=== PATIENT | female | born 1960 | race Caucasian/White ===

== ENCOUNTER → 2017-06-24 | Outpatient (CLI) | payer BC | END | disposition home or self-care (01) | LOC: Rad HDHVI 07:57 | PROVIDERS: ATTEND Internal Medicine Cardiovascular Disease | DX: I20.9 Angina pectoris, unspecified (principal); R63.8 Other symptoms and signs concerning food and fluid intake | CPT/HCPCS: 93306 ==

== ENCOUNTER → 2017-07-01 | Outpatient (CLI) | payer BC ==
[~2017-07-01] MED LIST: ADENOSINE 90 MG/30 ML INJ IV ONE; ADENOSINE IV ONE; GIVE UN DILUTED IV ONE
== END | disposition home or self-care (01) ==
LOC: Rad HDHVI 09:10
PROVIDERS: ATTEND Internal Medicine Cardiovascular Disease
DX: I10 Essential (primary) hypertension (principal); R63.8 Other symptoms and signs concerning food and fluid intake; E66.01 Morbid (severe) obesity due to excess calories; E78.00 Pure hypercholesterolemia, unspecified
CPT/HCPCS: 78452; 93005; 96374; 96375; A9500; J0153

== ENCOUNTER → 2017-10-04 | Outpatient (CLI) | payer BC ==
[2017-10-04 12:24] LABS: Albumin 3.6 g/dL (3.4-5.0); BUN/Creatinine Ratio 33.3; Bilirubin, Total 0.5 mg/dL (0.2-1.0); Calcium 9.2 mg/dL (8.5-10.1); Potassium 3.3 mmol/L (3.5-5.1); Total Protein 7.8 g/dL (6.4-8.2)
== END | disposition home or self-care (01) ==
LOC: LAB 08:25
PROVIDERS: ATTEND Internal Medicine Cardiovascular Disease
DX: I10 Essential (primary) hypertension (principal)
CPT/HCPCS: 36415; 80053

== ENCOUNTER → 2017-10-31 | Outpatient (CLI) | payer BC ==
[2017-10-31 16:39] LABS: Albumin 3.8 g/dL (3.4-5.0); BUN/Creatinine Ratio 38.2; Basophils # (auto) 0.1 uL; Basophils % (auto) 0.6 % (0.0-2.0); Bilirubin, Total 0.3 mg/dL (0.2-1.0); Calcium 9.4 mg/dL (8.5-10.1); Eosinophils # (auto) 0.3 uL; Eosinophils % (auto) 2.8 % (0.0-7.0); Hematocrit 41.6 % (36.0-46.0); Hemoglobin 13.9 g/dL (12.2-16.2); Lymphocytes # (auto) 3.2 uL; Lymphocytes % (auto) 30.6 % (10.0-50.0); Mean Corpuscular Hemoglobin 29.5 pg (28.0-32.0); Mean Corpuscular Hgb Conc. 33.4 g/dL (32.0-36.0); Mean Corpuscular Volume 88.3 fL (80.0-100.0); Monocytes # (auto) 0.7 uL; Monocytes % (auto) 6.6 % (0.0-12.0); Neutrophils # (auto) 6.2 uL; Neutrophils % (auto) 59.4 % (37.0-80.0); Nucleated Red Blood Cells % 0.1 %; Platelet Count (auto) 243 10^3/uL (140-450); Potassium 3.9 mmol/L (3.5-5.1); Red Blood Cells 4.71 10^6/uL (4.0-5.20); Red Cell Distribution Width 13.9 % (11.8-14.3); Total Protein 8.1 g/dL (6.4-8.2); White Blood Cell 10.5 10^3/uL (4.4-10.8)
== END | disposition home or self-care (01) ==
LOC: LAB 14:56
PROVIDERS: ATTEND Internal Medicine Cardiovascular Disease
DX: D64.9 Anemia, unspecified (principal); R74.8 Abnormal levels of other serum enzymes; I10 Essential (primary) hypertension
CPT/HCPCS: 36415; 80053; 82550; 85025

== ENCOUNTER → 2018-04-18 | Outpatient (CLI) | payer BC ==
[2018-04-18 12:29] LABS: Basophils # (auto) 0 uL; Basophils % (auto) 0.6 % (0.0-2.0); Eosinophils # (auto) 0.2 uL; Eosinophils % (auto) 2.1 % (0.0-7.0); Hematocrit 41.6 % (36.0-46.0); Hemoglobin 14.1 g/dL (12.2-16.2); Lymphocytes # (auto) 2.3 uL; Lymphocytes % (auto) 29.1 % (10.0-50.0); Mean Corpuscular Hemoglobin 30.6 pg (28.0-32.0); Mean Corpuscular Hgb Conc. 33.8 g/dL (32.0-36.0); Mean Corpuscular Volume 90.4 fL (80.0-100.0); Monocytes # (auto) 0.4 uL; Monocytes % (auto) 5.4 % (0.0-12.0); Neutrophils % (auto) 62.8 % (37.0-80.0); Nucleated Red Blood Cells % 0.2 %; Platelet Count (auto) 214 10^3/uL (140-450); Red Blood Cells 4.61 10^6/uL (4.0-5.20); Red Cell Distribution Width 13.6 % (11.8-14.3); White Blood Cell 7.9 10^3/uL (4.4-10.8)
[2018-04-18 12:30] LABS: Urine Blood Negative /uL (Negative)
[2018-04-18 12:56] LABS: Albumin 3.8 g/dL (3.4-5.0); BUN/Creatinine Ratio 28.8; Bilirubin, Total 0.3 mg/dL (0.2-1.0); Calcium 9.3 mg/dL (8.5-10.1); Potassium 3.9 mmol/L (3.5-5.1); Total Protein 7.9 g/dL (6.4-8.2)
[2018-04-18 14:48] LABS: Free T4 (Free Thyroxine) 0.87 ng/dL (0.89-1.76)
== END | disposition home or self-care (01) ==
LOC: LAB 08:17
PROVIDERS: ATTEND Internal Medicine
DX: Z00.01 Encounter for general adult medical examination with abnormal findings (principal); E03.9 Hypothyroidism, unspecified; E11.9 Type 2 diabetes mellitus without complications; E55.9 Vitamin D deficiency, unspecified; D51.9 Vitamin B12 deficiency anemia, unspecified; N39.0 Urinary tract infection, site not specified
CPT/HCPCS: 36415; 80053; 80061; 81003; 82306; 82607; 83036; 84439; 84443; 85025; 87086

== ENCOUNTER 2022-08-01 08:31 | Inpatient (IN) | payer BC ==
[~2022-08-01] VITALS: Ht 167.6 cm; Wt 155.7 kg
[2022-08-01 09:03] LABS: Basophils # (auto) 0 10 ^3/uL (0-0.2); Basophils % (auto) 0.4 % (0.0-2.0); Eosinophils # (auto) 0 10 ^3/uL (0-0.8); Eosinophils % (auto) 0.4 % (0.0-7.0); Hematocrit 45.8 % (36.0-46.0); Hemoglobin 14.9 g/dL (12.2-16.2); Lymphocytes # (auto) 1.9 10 ^3/uL (0.4-5.4); Lymphocytes % (auto) 17.8 % (10.0-50.0); Mean Corpuscular Hemoglobin 30.2 pg (28.0-32.0); Mean Corpuscular Hgb Conc. 32.4 g/dL (32.0-36.0); Monocytes # (auto) 0.6 10 ^3/uL (0-1.3); Monocytes % (auto) 5.8 % (0.0-12.0); Neutrophils # (auto) 7.9 10 ^3/uL (1.6-8.6); Neutrophils % (auto) 75.6 % (37.0-80.0); Red Blood Cells 4.93 10^6/uL (4.0-5.20); White Blood Cell 10.5 10^3/uL (4.4-10.8)
[2022-08-01 09:35] LABS: Albumin 3.9 g/dL (3.4-5.0); Calcium 9.8 mg/dL (8.5-10.1); Potassium 3.5 mmol/L (3.5-5.1)
[2022-08-01 09:36] LABS: INR 1.03 (0.9-1.15); Partial Thromboplastin Time 27.5 sec (24.6-33.4)
[2022-08-01 09:38] LABS: BUN/Creatinine Ratio 20.6; Bilirubin, Total 0.4 mg/dL (0.2-1.0); Total Protein 8.2 g/dL (6.4-8.2)
[2022-08-01] MEDS ORDERED: SODIUM CHLORIDE 0.9% 1,000 ML IV SCH (17:30)
[2022-08-01] MEDS ORDERED: ACETAMINOPHEN 325 MG TAB PO PRN (17:30)
[2022-08-01] MEDS ORDERED: MORPHINE SULFATE INJ 2 MG/ml SYRG IV PRN (17:30)
[2022-08-01] MEDS ORDERED: ASPirin 325 MG TAB PO ONE (17:30)
[2022-08-01] MEDS ORDERED: NITROGLYCERIN 0.4 MG SL TAB SL PRN (17:30)
[2022-08-01] MEDS ORDERED: KETOROLAC TROMETH 30 MG/ML 1ML VIAL IV ONE ×2 (18:00)
[2022-08-01] MEDS ORDERED: hydrALAZINE HCL 20 MG/ML VL IV PRN (18:30)
[2022-08-01] MEDS ORDERED: METO25TA93 PO (19:14)
[2022-08-01] MEDS ORDERED: ASPI1TAB20 PO (19:14)
[2022-08-01] MEDS ORDERED: ATOR20TA50 PO (19:14)
[2022-08-01] MEDS ORDERED: AMLO-496 PO (19:14)
[2022-08-01] MEDS ORDERED: CHLO25TA2 PO (19:14)
[2022-08-01 19:49] LABS: Cholesterol 165 mg/dL (< 200); Triglycerides 143 mg/dL (< 150)
[2022-08-01 19:50] LABS: HDL Cholesterol 53 mg/dL (40-59); LDL Cholesterol 108 mg/dL (< 100)
[2022-08-01 22:00] VITALS: BP 136/77
[2022-08-02 05:00] VITALS: BP 143/70
[2022-08-02 05:49] LABS: Basophils # (auto) 0.1 10 ^3/uL (0-0.2); Basophils % (auto) 0.7 % (0.0-2.0); Eosinophils # (auto) 0.1 10 ^3/uL (0-0.8); Hematocrit 41.7 % (36.0-46.0); Hemoglobin 13.8 g/dL (12.2-16.2); Lymphocytes # (auto) 2.3 10 ^3/uL (0.4-5.4); Lymphocytes % (auto) 24.1 % (10.0-50.0); Mean Corpuscular Hemoglobin 30.1 pg (28.0-32.0); Mean Corpuscular Hgb Conc. 33.2 g/dL (32.0-36.0); Mean Corpuscular Volume 90.8 fL (80.0-100.0); Monocytes # (auto) 0.7 10 ^3/uL (0-1.3); Monocytes % (auto) 7.1 % (0.0-12.0); Neutrophils # (auto) 6.5 10 ^3/uL (1.6-8.6); Neutrophils % (auto) 67.1 % (37.0-80.0); Nucleated Red Blood Cells % 0.1 %; Red Blood Cells 4.59 10^6/uL (4.0-5.20); Red Cell Distribution Width 13.8 % (11.8-14.3); White Blood Cell 9.7 10^3/uL (4.4-10.8)
[2022-08-02 05:55] LABS: Albumin 3.8 g/dL (3.4-5.0); Calcium 9.2 mg/dL (8.5-10.1); Potassium 3.4 mmol/L (3.5-5.1)
[2022-08-02 05:59] LABS: BUN/Creatinine Ratio 37.1; Bilirubin, Total 0.4 mg/dL (0.2-1.0); Total Protein 7.3 g/dL (6.4-8.2)
[2022-08-02 08:30] VITALS: BP 151/72
[2022-08-02] MEDS: ASPirin 81 mg TAB PO SCH (11:04)
[2022-08-02] MEDS: ENOXAPARIN SOD 40 MG/0.4 ML SYRINGE SC SCH (11:04)
[2022-08-02] MEDS: KETOROLAC TROMETH 30 MG/ML 1ML VIAL IV PRN ×2 (11:30→18:02)
[2022-08-02] MEDS: amLODIPine BESYLATE 5 MG TAB PO SCH (11:31)
[2022-08-02] MEDS: METOPROLOL SUCCINATE XL 50 MG TAB PO SCH (11:33)
[2022-08-02] MEDS ORDERED: POM PO (11:44)
[2022-08-02 12:30] VITALS: BP 139/86
[2022-08-02 16:30] VITALS: BP 153/86
[2022-08-02 22:00] VITALS: BP 140/63
[2022-08-02] MEDS ORDERED: ATORVASTATIN 20 MG TAB PO SCH (22:00)
[2022-08-02] MEDS ORDERED: EDARBI 80 MG PO SCH (22:00)
[2022-08-03 05:00] VITALS: BP 136/65
[2022-08-03] MEDS: amLODIPine BESYLATE 5 MG TAB PO SCH (09:33)
[2022-08-03] MEDS: ASPirin 81 mg TAB PO SCH (09:34)
[2022-08-03] MEDS: ENOXAPARIN SOD 40 MG/0.4 ML SYRINGE SC SCH (09:34)
[2022-08-03] MEDS: METOPROLOL SUCCINATE XL 50 MG TAB PO SCH (09:34)
[2022-08-03] MEDS ORDERED: ASPirin-EC 81 mg tab PO SCH (10:00)
[2022-08-03] MEDS ORDERED: CHLORTHALIDONE 25 MG PO SCH (10:00)
[2022-08-03] MEDS ORDERED: VALTREX 1000 MG PO ONE (10:00)
[2022-08-03] MEDS ORDERED: POM PO (10:04)
[2022-08-03] MEDS ORDERED: PRED10TA PO (10:07)
[2022-08-03] MEDS ORDERED: VALA1TAB PO (10:07)
[2022-08-03] MEDS ORDERED: prednisoLONE 15 MG/5 ML ORAL UD PO ONE (10:30)
[2022-08-03] MEDS ORDERED: VALACYCLOVIR HCL 500 MG TAB PO ONE (10:30)
[2022-08-03 11:38] VITALS: BP 131/73
[2022-08-03 13:00] VITALS: BP 123/73
== END 2022-08-03 14:00 | disposition home or self-care (01) | DRG 313 ==
LOC: ER 08:35 → TELE 17:29 → TELE-CENTR 18:48
PROVIDERS: ADMIT Nurse Practitioner Family; ATTEND Internal Medicine
DX: R07.89 Other chest pain (principal); Z68.43 Body mass index [BMI] 50.0-59.9, adult; B02.9 Zoster without complications; E66.9 Obesity, unspecified; E78.5 Hyperlipidemia, unspecified; I10 Essential (primary) hypertension; Z20.822 Contact with and (suspected) exposure to COVID-19; Z82.49 Family history of ischemic heart disease and other diseases of the circulatory system
CPT/HCPCS: 36415; 71045; 80053; 80061; 83036; 83880; 84443; 84484; 85025; 85610; 85730; 87426; 93005; 93306; 96361; 96374; G0378; J1885; J7510